=== PATIENT | male | born 1985 | race Caucasian/White ===

== ENCOUNTER → 2019-05-24 13:35 | Outpatient (BNVA) | payer OTHER, SELFPAY | PROVIDERS: Visit Provider Emergency Medicine | DX: R07.89 Other chest pain (principal); Z11.59 Encounter for screening for other viral diseases; R09.89 Other specified symptoms and signs involving the circulatory and respiratory systems | CPT/HCPCS: 71046; 87400 ==

== ENCOUNTER → 2019-05-25 15:13 | Outpatient (BNVA) | payer OTHER, SELFPAY | PROVIDERS: Visit Provider Emergency Medicine | DX: R68.89 Other general symptoms and signs (principal); R09.89 Other specified symptoms and signs involving the circulatory and respiratory systems; Z11.59 Encounter for screening for other viral diseases; R05 Cough | CPT/HCPCS: 87635 ==